=== PATIENT | male | born 1940 | race Hispanic/Latino ===

== ENCOUNTER 2017-01-22 07:28 | Emergency (ER) | payer MEDICARE ==
--- NOTE | 2017-01-22 07:42 | ED PDOC ---
Arrival/HPI - General Time Seen by Provider: 01/22/17 07:33 Historian: Patient - History of Present Illness Narrative History of Present Illness (Text): 01/22/17 07:37 A 76 year old male presents to the emergency department complaining of a laceration to his right hand. Patient reports while cutting a piece of wax paper he injured his palm on the blade of the box. Patient denies any other injuries, fever, chills or other complaints. Patient takes baby Aspirin daily. PMD: Dr. dr Cortney Fatima Time/Duration: Other (Last night) Symptom Course: Unchanged Quality: Other Context: Home Past Medical History - Provider Review Nursing Documentation Reviewed: Yes - Tetanus Immunization Tetanus Immunization: >10 years Ago Family/Social History - Physician Review Nursing Documentation Reviewed: Yes Family/Social History: No Known Family HX Allergies/Home Meds Allergies/Adverse Reactions: Allergies No Known Allergies Allergy (Verified 01/22/17 07:45) Home Medications: Home Meds Medication Instructions Recorded Confirmed Unobtainable 01/22/17 01/22/17 Review of Systems - Physician Review All systems were reviewed & negative as marked: Yes - Review of Systems Constitutional: absent: Fevers, Night Sweats Skin: Laceration (Right hand) Physical Exam Vital Signs Temp Pulse Resp BP Pulse Ox 01/22/17 07:37 98.7 F 70 16 142/71 99 Appearance: Positive for: Well-Appearing, Non-Toxic, Comfortable Pain Distress: None Mental Status: Positive for: Alert and Oriented X 3 - Systems Exam Head: Present: Atraumatic, Normocephalic Pupils: Present: PERRL Extroacular Muscles: Present: EOMI Conjunctiva: Present: Normal Mouth: Present: Moist Mucous Membranes Neurological: Present: GCS=15, CN II-XII Intact, Speech Normal Skin: Present: Warm, Dry, Normal Color, Laceration (2 cm laceration on right palm, good pulse and capillary refill). No: Rashes Psychiatric: Present: Alert, Oriented x 3, Normal Insight, Normal Concentration Medical Decision Making ED Course and Treatment: 01/22/17 07:37 Impression: A 76 year old male with a laceration to right palm. Differential Diagnosis included but are not limited to: Laceration Plan: -- Laceration repair -- Reassess and disposition Progress Notes: PROCEDURE: LACERATION REPAIR Performed by the emergency provider Location: Right palm Length: 2 cm Description: Clean wound edges, No foreign bodies Distal CMS: Normal. No deficits. Neurovascularly intact. Anesthesia: Lidocaine 2% without epi Preparation: The wound was cleaned with NS. The area was prepped and draped in the usual sterile fashion. Exploration: The wound was explored and no foreign bodies were found. Procedure: The wound was closed with 4-0 nylon. There was good approximation. In total, 5 sutures were used. Post-Procedure: Good closure and hemostasis. The patient tolerated the procedure well and there were no complications. CSM remains intact. Post procedure dressing applied. 01/22/17 08:04 Advised patient not to wet his wound for 48 hours and to follow up for suture removal in 7-10 days. Patient expresses understanding and is in agreement with plan. - Lab Interpretations Lab Results: Lab Results 01/22/17 07:36: POC Glucose (mg/dL) 141 H - Medication Orders Current Medication Orders: Discontinued Medications Bacitracin (Bacitracin) 1 ea TOP ONCE ONE Stop: 01/22/17 08:04 Tetanus/Reduced Diphtheria/Acell Pertussis (Boostrix Vaccine Inj) 0.5 ml IM .ONCE ONE Stop: 01/22/17 08:04 - Scribe Statement The provider has reviewed the documentation as recorded by the Scribadelina Adair Provider Scribe Attestation: All medical record entries made by the Scribe were at my direction and personally dictated by me. I have reviewed the chart and agree that the record accurately reflects my personal performance of the history, physical exam, medical decision making, and the department course for this patient. I have also personally directed, reviewed, and agree with the discharge instructions and disposition. Disposition/Present on Arrival - Present on Arrival Any Indicators Present on Arrival: No - Disposition Have Diagnosis and Disposition been Completed?: Yes Diagnosis: Hand laceration Disposition: HOME/ ROUTINE Disposition Time: 08:04 Patient Plan: Discharge Patient Problems: Current Active Problems Problem Status Onset Hand laceration Acute Condition: IMPROVED Discharge Instructions (ExitCare): Laceration (ED) Additional Instructions: Mr Redd, thank you for letting us take care of you today. Your provider was Dr. Bowen. You were treated for Hand Laceration. The emergency medical care you received today was directed at your acute symptoms. If you were prescribed any medication, please fill it and take as directed. It may take several days for your symptoms to resolve. Return to the Emergency Department if your symptoms worsen, do not improve, or if you have any other problems. Do not wet wound for 48 hours and you need suture removal in 7-10days. Please return to the ED if redness, pus, swollen occurs or any other concern. Please contact your doctor or call one of the physicians/clinics you have been referred to that are listed on the Patient Visit Information form that is included in your discharge packet. Bring any paperwork you were given at discharge with you along with any medications you are taking to your follow up visit. Our treatment cannot replace ongoing medical care by a primary care provider (PCP) outside of the emergency department. Thank you for allowing the [facility] team to be part of your care today. If you had an X-Ray or CT scan: A Radiologist will review the ED reading if any change in treatment is needed we will contact you. If you had a blood, urine, or wound culture: It will take several days for the results, if any change in treatment is needed we will contact you. If you had an STI test: It will take 48 hours for the results. Please call after 1 week if you have not heard back. Referrals: Cortney Fatima MD [Staff Provider] - Follow up with primary Forms: [employer] (Sudanese), WORK NOTE
[2017-01-22] MEDS ORDERED: TDAP Vaccine 0.5 mL Syr IM ONE (08:03)
[2017-01-22] MEDS ORDERED: Bacitracin 500 Units/gm Oint Foilpak UD TOP ONE (08:03)
[2017-01-22 08:30] VITALS: BP 134/71; PULSE 75; RESP 20; TEMP 98; O2SAT 100
== END 2017-01-22 08:31 | disposition home or self-care (01) ==
LOC: ED 07:28
DX: S61.411A Laceration without foreign body of right hand, initial encounter (principal); W45.8XXA Other foreign body or object entering through skin, initial encounter; Y92.009 Unspecified place in unspecified non-institutional (private) residence as the place of occurrence of the external cause; Z23 Encounter for immunization

== ENCOUNTER 2017-06-15 10:26 | Inpatient (IN) | payer MEDICARE ==
--- NOTE | 2017-06-15 11:25 | ED PDOC ---
Arrival/HPI - General Time Seen by Provider: 06/15/17 11:08 Historian: Patient - History of Present Illness Narrative History of Present Illness (Text): Patient is a 77 yo male with past medical history of diabetes, presents to the Emergency Department with fatigue, chills, cough for past 4 days. He reports feeling bloated. He reports cough and congestion. Denies chest pain or palpitations. Denies leg pain or swelling. States he has been feeling short of breath when he lays flat down. He also states that he has been feeling dizzy and lightheaded when he stands or walks. No headache. No sore throat. No rash. No neck pain. Reports no appetite. Denies abdominal pain. Denies dark or bloody stools. Time/Duration: 1 week Symptom Onset: Gradual Symptom Course: Unchanged Activities at Onset: Light Context: Home Past Medical History - Provider Review Nursing Documentation Reviewed: Yes - Infectious Disease Hx of Infectious Diseases: None - Tetanus Immunization Tetanus Immunization: >10 years Ago - Endocrine/Metabolic Hx Diabetes Mellitus Type 2: Yes - Psychiatric Hx Substance Use: No Family/Social History - Physician Review Nursing Documentation Reviewed: Yes Family/Social History: No Known Family HX Smoking Status: Unknown If Ever Smoked Hx Alcohol Use: No Hx Substance Use: No Allergies/Home Meds Allergies/Adverse Reactions: Allergies No Known Allergies Allergy (Verified 06/15/17 11:13) Home Medications: Home Meds Medication Instructions Recorded Confirmed Aspirin [Aspirin Chewable] 81 mg PO DAILY 06/15/17 06/15/17 Atenolol/Chlorthalidone 1 tab PO DAILY 06/15/17 06/15/17 [Atenolol/Chlorthalidone 100 mg-25 mg] Benazepril HCl [Lotensin] 40 mg PO BID 06/15/17 06/15/17 Fish Oil/Dha/Epa [Fish Oil 1,200 1 each PO DAILY 06/15/17 06/15/17 mg Fish Oil] Glipizide [Glucotrol] 10 mg PO BID 06/15/17 06/15/17 Insulin Detemir [Levemir] 20 unit SC DAILY 06/15/17 06/15/17 Insulin Detemir [Levemir] 60 unit SC DAILY 06/15/17 06/15/17 Metformin HCl [Glucophage] 1 tab PO BID 06/15/17 06/15/17 Multivitamin [One Daily 1 each PO DAILY 06/15/17 06/15/17 Multivitamin] Potassium Chloride [Klor-Con M20] 20 meq PO DAILY 06/15/17 06/15/17 Simvastatin [Zocor] 40 mg PO DAILY 06/15/17 06/15/17 Review of Systems - Review of Systems Constitutional: Fatigue, Fevers, Night Sweats Eyes: absent: Vision Changes ENT: Rhinorrhea. absent: Voice Changes Respiratory: SOB (upon lying down), Cough. absent: Sputum, Wheezing Cardiovascular: XAVIER. absent: Chest Pain, Palpitations, Edema, Calf Pain Gastrointestinal: Nausea, Appetite Changes. absent: Abdominal Pain, Constipation, Diarrhea, Vomiting, Hematochezia, Hematemesis Genitourinary Male: Urinary Output Changes. absent: Dysuria, Frequency Musculoskeletal: absent: Arthralgias, Neck Pain Skin: absent: Rash, Pruritis Neurological: absent: Headache, Dizziness Endocrine: absent: Diaphoresis Hemo/Lymphatic: absent: Adenopathy Psychiatric: absent: Anxiety, Depression Physical Exam - Physical Exam Narrative Physical Exam (Text): Head: Atraumatic. Normocephalic. Eyes: PERRL. EOMI. Conjunctivae are not pale. ENT: Mucous membranes are dry. Oropharynx is clear and symmetric. Neck: Supple. Full ROM. No JVD. No lymphadenopathy. No meningeal signs. Cardiovascular: Regular rate. Regular rhythm. No murmurs, rubs, or gallops. Distal pulses are 2+ and symmetric. Pulmonary/Chest: No evidence of respiratory distress. Clear to auscultation bilaterally. No wheezing, rales or rhonchi. Abdominal: Distended but soft and nontender. No pulsatile masses. Rectal: brown heme negative stool, no melena Back: No CVA tenderness. Extremities: No edema. No cyanosis. No clubbing. Full range of motion in all extremities. No calf tenderness. Skin: Skin is warm and dry. No petechiae. No purpura. No cellulitis. Neurological: Alert, awake, and oriented to person, place, time, and situation. Normal speech. No meningeal signs. motor and sensory exam intact. Psychiatric: Good eye contact. Normal interaction, affect, and behavior. Vital Signs Reviewed: Yes Vital Signs Temp Pulse Resp BP Pulse Ox 06/15/17 15:00 98.9 F 60 18 119/67 99 06/15/17 12:27 98.9 F 55 L 18 130/59 L 96 06/15/17 11:59 98.9 F 53 L 18 132/58 L 96 Temperature: Afebrile Appearance: Positive for: Ill-Appearing Pain Distress: Mild Mental Status: Positive for: Alert and Oriented X 3 Medical Decision Making ED Course and Treatment: 06/15/17 11:27 Impression: 77 year old male complaining shortness of breath upon laying down and cannot tolerate food with associated coughs, clogged ears, bloating, and chills for six days. Differential Diagnosis included but are not limited to: CHF vs. Influenza vs. Pneumonia vs. Acute Coronary Syndrome vs. Sepsis, pericarditis, pericardial effusion Plan: -- EKG -- Chest X-ray -- Abdomen and Pelvis w/o contrast -- VBG and Blood Culture -- Urine Culture -- Labs -- Reassess and disposition Prior Visits: Notes and results from previous visits were reviewed. Patient was last seen in the emergency department on 01/22/17 for laceration to right hand. Patient was discharged home. Progress Notes: Patient's history and exam also reviewed with PMD prior to arrival. He denies chest pain or abdominal pain. No respiratory distress noted. Currently afebrile , although reports cough with sick exposures. States he has no appetited and does not tolerate oral intake, although on exam his abdomen is soft and nontender. Given persistent symptoms, ct ordered of abdomen, no obstruction noted. IV fluids ordered. K replaced. No recent prior EKG for comparison, patient noted to have abnormal EKG with Bifascicular block. On monitor he is noted to be intermittently bradycardic, although BP has been stable and no associated chest pain. Cannot exclude associated cardiac component, heart block although there appears to be consistent p waves associated at this time. Findings reviewed with patient and PMD, as influenza is positive. Precautions ordered, and tamiflu. Will admit to telemetry bed given heart rhythm and reported episodes of dizziness. 06/15/17 15:32 - Lab Interpretations Lab Results: 06/15/17 12:25 06/15/17 12:25 Lab Results 06/15/17 12:25: pO2 26 L, VBG pH 7.43, VBG pCO2 49.0, VBG HCO3 32.5 H, VBG Total CO2 34.0 H, VBG O2 Sat (Calc) 53.0, VBG Base Excess 6.9 H, VBG Potassium 3.0 L, Sodium 135.0, Chloride 98.0, Glucose 151 H, Lactate 1.1, FiO2 21.0, Venous Blood Potassium 3.0 L 06/15/17 12:25: Influenza Typ A,B (EIA) Pos for influenza a H 06/15/17 12:25: Sodium 136, Chloride 95 L, Potassium 3.1 L, Carbon Dioxide 31, Anion Gap 13, BUN 25 H, Creatinine 0.8, Est GFR ( Amer) > 60, Est GFR ( Non-Af Amer) > 60, Random Glucose 151 H, Calcium 9.1, Magnesium 2.0, Total Bilirubin 1.2, AST 40, ALT 27, Alkaline Phosphatase 82, Lactate Dehydrogenase 444, Total Creatine Kinase 74, Troponin I 0.03, NT-Pro-B Natriuret Pep 302, Total Protein 7.5, Albumin 4.0, Globulin 3.5, Albumin/Globulin Ratio 1.1 06/15/17 12:25: PT 16.6 H, INR 1.43 H, APTT 37.3 H 06/15/17 12:25: WBC 8.0 D, RBC 3.92, Hgb 11.7 L, Hct 35.1 L, MCV 89.5, MCH 29.8 , MCHC 33.3, RDW 13.6, Plt Count 147, MPV 9.7, Gran % 70.1 H, Lymph % (Auto) 18.1 L, Mccracken % (Auto) 11.4 H, Eos % (Auto) 0.3 L, Baso % (Auto) 0.1, Gran # 5.57 , Lymph # 1.4, Mccracken # 0.9 H, Eos # 0.0, Baso # 0.01 - RAD Interpretation Radiology Orders: 06/15/17 11:15 ABD & PELVIS W/O PO OR IV CONT [CT] Stat 06/15/17 11:16 CHEST PORTABLE [RAD] Stat Popped Corn Oven Attendant: Radiologist - EKG Interpretation EKG Interpretation (Text): EKG at 11:14 sinus rhythm rate of 65 with right bundle branch block, left anterior fascicular block, Interpreted by ED Physician: Yes Type: 12 lead EKG - Medication Orders Current Medication Orders: Discontinued Medications Potassium Chloride (Potassium Chloride 10 Meq/100 Ml) 10 meq in 100 mls @ 50 mls/hr IVPB ONCE ONE Stop: 06/15/17 15:02 Last Admin: 06/15/17 14:14 Dose: 50 mls/hr eMAR Start Stop Document 06/15/17 14:14 OCS (Rec: 06/15/17 14:14 OCS [id number]) Intravenous Solution Start Date 06/15/17 Start Time 14:14 End Date 06/15/17 End time 16:14 Total Infusion Time 120 Sodium Chloride (Sodium Chloride 0.9%) 1,000 mls @ 1,000 mls/hr IV .Q1H STA Stop: 06/15/17 14:21 Last Admin: 06/15/17 14:02 Dose: 1,000 mls/hr eMAR Start Stop Document 06/15/17 14:02 OCS (Rec: 06/15/17 14:02 OCS [id number]) Intravenous Solution Start Date 06/15/17 Start Time 14:02 End Date 06/15/17 End time 15:02 Total Infusion Time 60 Oseltamivir Phosphate (Tamiflu Cap) 75 mg PO STAT STA PRN Reason: Protocol Stop: 06/15/17 13:20 Last Admin: 06/15/17 14:02 Dose: 75 mg Potassium Chloride (K-Dur 20 Meq Er Tab) 40 meq PO STAT STA Stop: 06/15/17 13:05 Last Admin: 06/15/17 14:03 Dose: 40 meq - Scribe Statement The provider has reviewed the documentation as recorded by the Shima Hoover Provider Scribe Attestation: All medical record entries made by the Shima were at my direction and personally dictated by me. I have reviewed the chart and agree that the record accurately reflects my personal performance of the history, physical exam, medical decision making, and the department course for this patient. I have also personally directed, reviewed, and agree with the discharge instructions and disposition. Disposition/Present on Arrival - Present on Arrival Any Indicators Present on Arrival: No History of DVT/PE: No History of Uncontrolled Diabetes: No Urinary Catheter: No History Surgical Site Infection Following: None - Disposition Have Diagnosis and Disposition been Completed?: Yes Diagnosis: Influenza, Loss of appetite, Arrhythmia, Bradycardia, Bundle branch block, Hypokalemia Disposition: HOSPITALIZED Disposition Time: 14:00 Patient Plan: Admission, Telemetry Patient Problems: Current Active Problems Problem Status Onset Arrhythmia Acute Bradycardia Acute Bundle branch block Acute Hypokalemia Acute Influenza Acute Loss of appetite Acute Condition: SERIOUS
--- NOTE | 2017-06-15 12:36 | RAD ---
HISTORY: sob COMPARISON: No prior. FINDINGS: LUNGS: No active pulmonary disease. PLEURA: No significant pleural effusion identified, no pneumothorax apparent. CARDIOVASCULAR: Normal. OSSEOUS STRUCTURES: No significant abnormalities. VISUALIZED UPPER ABDOMEN: Normal. OTHER FINDINGS: None. IMPRESSION: No active disease.
[2017-06-15 12:42] LABS: VENOUS BLOOD GAS BASE EXCESS 6.9 mmol/L (0.0-2.0); VENOUS BLOOD GAS PO2 26 mm/Hg (30-55); VENOUS BLOOD PH 7.43 (7.32-7.43)
[2017-06-15 12:46] LABS: BASO # 0.01 K/mm3 (0.0-2.0); BASO % 0.1 % (0.0-3.0); EOS % 0.3 % (1.5-5.0); GRAN # 5.57 (1.4-6.5); GRAN % 70.1 % (50.0-68.0); HEMOGLOBIN 11.7 g/dL (14.0-18.0); LYMPH # 1.4 (1.2-3.4); LYMPH % 18.1 % (22.0-35.0); MEAN CELL VOLUME 89.5 fl (80.0-105.0); MEAN CORPUSCULAR HEMOGLOBIN 29.8 pg (25.0-35.0); MEAN CORPUSCULAR HGB CONC 33.3 g/dl (31.0-37.0); MEAN PLATELET VOLUME 9.7 fl (7.0-11.0); MONO # 0.9 (0.1-0.6); MONO % 11.4 % (1.0-6.0); RBC 3.92 10^6/uL (3.5-6.1); RED CELL DISTRIBUTION WIDTH 13.6 % (11.5-14.5)
[2017-06-15 12:51] LABS: ALB/GLOB RATIO 1.1 (1.1-1.8); ALT/SGPT 27 U/L (7-56); AST/SGOT 40 U/L (17-59); BLOOD UREA NITROGEN 25 mg/dL (7-21); CALCIUM 9.1 mg/dL (8.4-10.5); GFR AFRICAN-AMERICAN > 60; GFR NON-AFRICAN AMERICAN > 60
[2017-06-15 13:03] LABS: B-TYPE NATRIURETIC PEPTIDE 302 pg/mL (0-450); TROPONIN I 0.03 ng/mL
[2017-06-15] MEDS ORDERED: Potassium Chloride 20 mEq ER Tab PO STA (13:04)
[2017-06-15 13:05] LABS: PROTHROMBIN TIME 16.6 SECONDS (9.4-12.5)
[2017-06-15 13:06] LABS: INR 1.43 (0.93-1.08); PARTIAL THROMBOPLASTIN TIME 37.3 Seconds (25.1-36.5)
[2017-06-15] MEDS ORDERED: Sodium Chloride 0.9% 1,000 ML IV STA (13:22)
--- NOTE | 2017-06-15 13:22 | CT ---
PROCEDURE: CT Abdomen and Pelvis without intravenous contrast HISTORY: abdominal distension, vomiting COMPARISON: None. TECHNIQUE: Without contrast.. Contrast Dose: Radiation dose: Total exam DLP = 1462 mGy-cm. This CT exam was performed using one or more of the following dose reduction techniques: Automated exposure control, adjustment of the mA and/or kV according to patient size, and/or use of iterative reconstruction technique. FINDINGS: LOWER THORAX: Unremarkable. LIVER: Unremarkable. No gross lesion or ductal dilatation. GALLBLADDER AND BILE DUCTS: Unremarkable. PANCREAS: Unremarkable. No gross lesion or ductal dilatation. SPLEEN: Unremarkable. ADRENALS: Unremarkable. No mass. KIDNEYS AND URETERS: Unremarkable. No hydronephrosis. No solid mass. VASCULATURE: Unremarkable. No aortic aneurysm. BOWEL: Unremarkable. No obstruction. No gross mural thickening. Mild diverticulosis of the sigmoid colon and descending colon. No evidence of diverticulitis APPENDIX: Unremarkable. Normal appendix. PERITONEUM: Unremarkable. No free fluid. No free air. LYMPH NODES: Unremarkable. No enlarged lymph nodes. BLADDER: Unremarkable. REPRODUCTIVE: Unremarkable. BONES: No acute fracture. Disc degeneration L4-5 OTHER FINDINGS: None. IMPRESSION: No acute findings
[2017-06-15] MEDS ORDERED: Oxymetazoline 0.05% Nasal Spray (30 ml) NS PRN (18:19)
[2017-06-15] MEDS: Promethazine DM 6.25 mg-15 mg/5 ml Syrup PO PRN (18:23)
[2017-06-15] MEDS: Albuterol 0.083% Inhal Sol (2.5 mg/3 mL) UD INH SCH (20:10)
[2017-06-15] MEDS: Insulin Detemir 100 units/ml Vial (Levemir) SC SCH (21:50)
[2017-06-15 22:47] VITALS: BMI 33.7
[2017-06-15] MEDS ORDERED: Influenza Vaccine 60 mcg/0.5 mL SYR (4YR UP) IM ONE (22:47)
[2017-06-15] MEDS ORDERED: Pneumococcal 23-Valent Vaccine IM ONE (22:47)
[2017-06-16] MEDS: Albuterol 0.083% Inhal Sol (2.5 mg/3 mL) UD INH SCH ×4 (03:05→21:30)
--- NOTE | 2017-06-16 05:15 | HP ---
CHIEF COMPLAINT: Fever, cough, and weakness for 4 days. HISTORY OF PRESENT ILLNESS: The patient is a 77-year-old male with history of type 2 diabetes mellitus, hypertension, and hyperlipidemia who was sent from primary care doctor office to Emergency Room for evaluation due to fever, chest congestion, cough, and severe fatigue. The patient claims that he has fever and cough for 4 days. He has loss of appetite, feels bloated, and constipated. The patient states that he lost 3 to 4 pounds over the past few days. He denies any chest pain, heart palpitations, headache, or leg pains. PAST MEDICAL HISTORY: History of type 2 diabetes mellitus for the past 20 years, hypertension, hyperlipidemia, osteoarthritis of both knees, and chronic skin actinic keratosis. PRESENT MEDICATIONS: Include Levemir insulin, which he takes twice a day, glipizide twice a day, simvastatin one a day, metformin twice a day, atenolol, chlorthalidone one tablet daily, and benazepril 1 tablet daily. ALLERGIES: THE PATIENT DENIES ANY KNOWN ALLERGIES. FAMILY HISTORY: Noncontributory. SOCIAL HISTORY: The patient denies any smoking. He drinks alcohol occasionally. He denies any drug use. The patient is retired. He lives alone. He is independent of activity of daily living. REVIEW OF SYSTEMS: Complains of fatigue, loss of appetite, and fever for the past 4 days. He denies any sore throat. He complains of severe nasal congestion and ear pressure. He denies any dysphagia. Complains of chest congestion and dry cough. He denies any shortness of breath. He denies any chest pain or heart palpitations, but complains of dizziness. He denies any abdominal pain, but complains of feeling of bloating. He complains of constipation for the last 3 days. He denies any nausea, vomiting, or diarrhea. The patient denies any dysuria, hematuria, or flank pain. He denies any blurred vision. Complains of dizziness. Denies headache or neurological weakness. PHYSICAL EXAMINATION: VITAL SIGNS: His temperature on admission was 98.9, the patient's pulse was 70 and regular, blood pressure 130/59, and respiratory rate 18. His oxygen saturation was 96% on room air. GENERAL: The patient looked pale in no acute distress, but ill looking. HEENT: Head is normocephalic and atraumatic. Eyes with pupils reactive to light. No jaundice. Severe nasal congestion. Oral mucosa is moist. No throat lesions. No erythema. NECK: Supple. No JVD. No neck masses. LUNGS: With scattered rhonchi in the right lower lung. No wheezing. HEART: With regular rhythm, rate of 65 per minute. ABDOMEN: Slightly distended, nontender. No masses palpable. Bowel sounds are positive. EXTREMITIES: Showed no edema or cyanosis. No calf tenderness. DIAGNOSTIC TESTS: CBC with WBC 8 and hemoglobin 11.7. Chemistry pertinent finding, sodium 136, potassium low at 3.1, chloride is low at 95, BUN 25, and creatinine 0.8. His random glucose was 151. His troponin level was 0.03. BNP is normal. His serology was positive for influenza. Chest x-ray showed no acute infiltrations. EKG showed sinus rhythm with frequent premature atrial complexes. There is diffuse right bundle-branch block and left anterior fascicular block. There are nonspecific ST changes. ASSESSMENT: 1. A 77-year-old male with history of fever, chest congestion, and cough with positive influenza serology admitted for influenza. 2. Dehydration. 3. Hypokalemia. 4. Sinus bradycardia with abnormal EKG. 5. Type 2 diabetes mellitus. PLAN OF TREATMENT: The patient was admitted to telemetry. Septic workup was done. He was started on Tamiflu, albuterol through nebulizer was ordered as well as cough medication for relief of severe cough. Cardiology consult was called for evaluation of persistent bradycardia. The patient was started on his chronic medication of Levemir with fingerstick and glipizide. The patient was maintained on his CHRISSY inhibitor. We will repeat the chest x-ray in a.m. Cortney Fatima MD
[2017-06-16 07:15] LABS: HEMOGLOBIN 11.7 g/dL (14.0-18.0); MEAN CELL VOLUME 88.9 fl (80.0-105.0); MEAN CORPUSCULAR HEMOGLOBIN 29.6 pg (25.0-35.0); MEAN CORPUSCULAR HGB CONC 33.3 g/dl (31.0-37.0); MEAN PLATELET VOLUME 9.5 fl (7.0-11.0); RBC 3.95 10^6/uL (3.5-6.1); RED CELL DISTRIBUTION WIDTH 13.4 % (11.5-14.5); WHITE BLOOD COUNT 9.3 10^3/ul (4.5-11.0)
[2017-06-16 07:31] LABS: ALBUMIN 3.8 g/dL (3.0-4.8); ALT/SGPT 39 U/L (7-56); AST/SGOT 60 U/L (17-59); BLOOD UREA NITROGEN 18 mg/dL (7-21); GFR AFRICAN-AMERICAN > 60; GFR NON-AFRICAN AMERICAN > 60
[2017-06-16] MEDS ORDERED: Potassium Chloride 20 mEq ER Tab PO SCH (08:00)
[2017-06-16] MEDS ORDERED: Potassium Chloride 20 mEq ER Tab PO ONE ×3 (08:43→13:00)
[2017-06-16] MEDS ORDERED: Potassium Chloride 10 mEq ER Tab PO SCH (10:00)
[2017-06-16] MEDS: cefTRIAXone 1 gm 1 GM/100 ML BAG IVPB SCH (11:05)
--- NOTE | 2017-06-16 11:24 | RAD ---
HISTORY: influenza, r/o right pneumonia COMPARISON: 06/15/2017 TECHNIQUE: Chest PA and lateral FINDINGS: LUNGS: Right-sided vascular congestion. No evidence of pneumonia PLEURA: No significant pleural effusion identified. No pneumothorax apparent. CARDIOVASCULAR: Normal. OSSEOUS STRUCTURES: No significant abnormalities. VISUALIZED UPPER ABDOMEN: Normal. OTHER FINDINGS: None. IMPRESSION: Right-sided vascular and perihilar congestion
--- NOTE | 2017-06-16 17:48 | CARD ---
APPROVED REPORT EKG Measurement Heart [id number] <Conclusion> Marked sinus bradycardia Right bundle branch block Left anterior fascicular block Bifascicular block Left ventricular hypertrophy with repolarization abnormality Abnormal ECG
--- NOTE | 2017-06-16 18:10 | CARD ---
APPROVED REPORT EKG Measurement Heart [id number] <Conclusion> Sinus rhythm with premature atrial complexes Right bundle branch block Left anterior fascicular block Bifascicular block Left ventricular hypertrophy with repolarization abnormality Cannot rule out Septal infarct, age undetermined Abnormal ECG
--- NOTE | 2017-06-16 18:40 | CARD ---
APPROVED REPORT EXAM: Two-dimensional and M-mode echocardiogram with Doppler and color Doppler. INDICATION Chest Pain 2D DIMENSIONS Left Atrium (2D)3.3 (1.6-4.0cm)IVSd1.1 (0.7-1.1cm) Aortic Root (2D)3.6 (2.0-3.7cm)LVDd5.4 (3.9-5.9cm) LVOT Diameter2.3 (1.8-2.4cm)PWd1.2 (0.7-1.1cm) LVDs2.5 (2.5-4.0cm)FS (%) 53.8 % LVEF (%)84.3 (>50%) M-Mode DIMENSIONS Aortic Cusp Exc.1.00 (1.5-2.0cm) Aortic Valve AoV Peak Qbjhuzvs769.0cm/sAoV VTI74.5cmAO Peak GR.47mmHg LVOT Peak Hqufddky642.0cm/sLVOT VTI27.10cmAO Mean GR.25mmHg ANDRA (VMAX)1.03qw1HJV (VTI)1.51cm2 Mitral Valve MV E Ctuoclhh75.3cm/sMV A Qkoorade231.0cm/sE/A ratio0.7 TDI Lateral E' Peak V11.20cm/sMedial E' Peak V6.14cm/sE/Lateral E'7.4 E/Medial E'13.6 Pulmonary Valve PV Peak Vqgkgfux775.0cm/sPV Peak Grad.5mmHg Tricuspid Valve TR Peak Rhadzmcd226vp/sRAP NBIFXUVB3ldAwPR Peak Gr.33mmHg [id number] LEFT VENTRICLE The left ventricle is normal size. There is borderline concentric left ventricular hypertrophy. The left ventricular function is normal.Ef-65% There is normal LV segmental wall motion. Transmitral Doppler flow pattern is Grade IV-fixed restrictive diastolic dysfunction. No left ventricle thrombus noted on this study. There is no ventricular septal defect visualized. There is no left ventricular aneurysm. There is no mass noted in the left ventricle. RIGHT VENTRICLE The right ventricle is normal size. There is normal right ventricular wall thickness. The right ventricular systolic function is normal. ATRIA The left atrium size is normal. The right atrium size is normal. The interatrial septum is intact with no evidence for an atrial septal defect. AORTIC VALVE The aortic valve is calcified and displays decreased opening. There is trace aortic regurgitation. There is moderate valvular aortic stenosis. There is no aortic valvular vegetation. MITRAL VALVE The mitral valve is thickened but opens well. Mitral annular calcification is mild to moderate. Mitral regurgitation is trace. There is no mitral valve stenosis. There is no evidence of mitral valve prolapse. TRICUSPID VALVE The tricuspid valve leaflets are thickened , but open well. There is trace to mild tricuspid regurgitation.RVSP-36 mmof hg. There is no tricuspid valve stenosis. There is no tricuspid valve prolapse or vegetation. PULMONIC VALVE The pulmonic valve is not well visualized. GREAT VESSELS The aortic root is normal in size. The ascending aorta is normal in size. The pulmonary artery is normal. The IVC is normal in size and collapses >50% with inspiration. PERICARDIAL EFFUSION There is no pleural effusion. There is no pericardial effusion. <Conclusion> Normal saud,mber size.EF-65% There is trace aortic regurgitation. There is moderate valvular aortic stenosis. Mitral regurgitation is trace. There is trace to mild tricuspid regurgitation.RVSP-36 mmof hg. The IVC is normal in size and collapses >50% with inspiration. There is no pericardial effusion.
--- NOTE | 2017-06-16 19:16 | CON ---
CONSULT SERVICE: Cardiology. REASON FOR CONSULTATION AND FOLLOWUP: Admitted with flu, but having bradycardia and PVCs. Cardiac evaluation. BRIEF CLINICAL HISTORY: This is a 77-year-old male with past medical history significant for type 2 diabetes more than 10 years, hypertension, hyperlipidemia, had problem with weak heart and arrhythmias since the age of 14, and was told not to take part in competitive sport or a strenuous activity, but the patient all through life very active, he swims, he jogs, and no problem until he got to age 77. Denies any chest pain, denies any shortness of breath, denies any palpitations. Cardiology consult was called because of the bradycardia. When he sleeps, the heart rate goes to 40 with PVCs, but according to the patient, there has been nothing new and it has always been like this since the age of 14. PAST HISTORY: Significant diabetes, hypertension, hyperlipidemia, history of heart problem, arrhythmia, and bradycardia since start at the age of 14. Initially being followed by the parents goes to the parents to the pediatric clinical dietician, but later as he grew up, he stopped going to the doctor, especially commodities requirements analyst. He was very active and he swims and jogs, but no complaints. He had participated in all sports activity as well. SOCIAL HISTORY: Denies smoking. Denies any history of alcohol abuse. MEDICATIONS: Current medications before he came in, the patient was taking insulin, benazepril , aspirin, multivitamin, glipizide, metformin, simvastatin, and atenolol/chlorthalidone. REVIEW OF SYSTEM: As per HPI. PHYSICAL EXAMINATION: As follows; VITAL SIGNS: Height of the patient 5 feet 10 inches, weight of the patient 235 pounds, body mass index 33.7 kg/m2, heart rate 70, blood pressure 102/49. HEENT: PERRLA. Extraocular muscles intact. NECK: Supple. No carotid bruits or thyromegaly. CHEST: Clear to auscultation. HEART: S1 and S2 regular. ABDOMEN: Soft. EXTREMITIES: Clubbing and cyanosis negative. LABORATORY DATA: Blood workup: WBC 9.2, hemoglobin 11.7, hematocrit 35.1, and platelet count 152. Chemistry showed sodium 137, potassium 3.2, chloride 97, carbon dioxide 28, anion gap of 14, BUN 18, creatinine 0.7, troponin initial 0.03, glucose 99, AST 60. EKG shows normal sinus, right bundle, left anterior hemiblock, PVCs. IMPRESSION: The patient, according to him, has a history of bradycardia and arrhythmia and weakened heart muscles, not sure it was a low heart rate or real weakness of the heart muscles, diagnosed at the age of 14, used to go to see pediatric clinical dietician with the parents, later on as he grew up, he stopped going and has no cardiac complaints as such. Though he was advised not to take any competitive sports, but the patient jogs, swims, and got to the age of 77, no events. No history of dizziness or chest pain or shortness of breath. RECOMMENDATION: We will get echo. Baseline, the patient has EKG, normal sinus with PVCs, was on atenolol possibly that could be the reason the patient was bradycardic, but we will get echo to rule out any structural heart disease. The patient has a flu now, so we will do a stress test as an outpatient. Explained to the patient that for risk stratification, we will do a stress test as outpatient with multiple risk factors including diabetes, hypertension, obesity. Interim, we will get the lipid profile, TSH, hemoglobin A1C. We will follow with you and avoid beta jossue. We will supplement potassium. Thank you for providing us the opportunity in taking care of Moses Redd. Rima Ramsey MD
[2017-06-16] MEDS: Budesonide 0.5 mg/2 ml Inhal Susp UD IH SCH (21:30)
[2017-06-16] MEDS: Insulin Detemir 100 units/ml Vial (Levemir) SC SCH (21:39)
[2017-06-16] MEDS: Promethazine DM 6.25 mg-15 mg/5 ml Syrup PO PRN (23:20)
[2017-06-17] MEDS: Albuterol 0.083% Inhal Sol (2.5 mg/3 mL) UD INH SCH ×4 (02:30→21:50)
[2017-06-17 07:14] LABS: HEMOGLOBIN 11.4 g/dL (14.0-18.0); MEAN CELL VOLUME 89.1 fl (80.0-105.0); MEAN CORPUSCULAR HEMOGLOBIN 29.7 pg (25.0-35.0); MEAN CORPUSCULAR HGB CONC 33.3 g/dl (31.0-37.0); MEAN PLATELET VOLUME 9.5 fl (7.0-11.0); RBC 3.84 10^6/uL (3.5-6.1); RED CELL DISTRIBUTION WIDTH 13.6 % (11.5-14.5)
[2017-06-17 07:19] LABS: ALBUMIN 3.8 g/dL (3.0-4.8); ALT/SGPT 54 U/L (7-56); AST/SGOT 87 U/L (17-59); BLOOD UREA NITROGEN 12 mg/dL (7-21); GFR AFRICAN-AMERICAN > 60; GFR NON-AFRICAN AMERICAN > 60; HDL CHOLESTEROL 28 mg/dL (29-60); MAGNESIUM 2.1 mg/dL (1.7-2.2)
[2017-06-17 07:27] LABS: LDL CHOLESTEROL 93 mg/dL (0-129)
[2017-06-17] MEDS: Budesonide 0.5 mg/2 ml Inhal Susp UD IH SCH ×2 (07:30→21:50)
--- NOTE | 2017-06-17 08:40 | PN ---
DATE: 06/16/2017 SUBJECTIVE: The patient was admitted for influenza with bronchitis. He developed significant sinus bradycardia, needing evaluation in the emergency room and was admitted to Telemetry. He is feeling better. The patient is afebrile since his admission. He continues with severe chest congestion and cough. He denies any chest pain or shortness of breath. His appetite improved. The patient continues with significant sinus bradycardia down to 40 at night seen on telemetry. PHYSICAL EXAMINATION: VITAL SIGNS: Stable. His temperature was 98.5 this morning, pulse 60, respiratory rate 16, and blood pressure 95/44. GENERAL: He is comfortable, sitting on the chair, alert, awake and oriented. HEENT: Head is normocephalic and atraumatic. Oral mucosa is moist. NECK: Supple. LUNGS: With bilateral bronchi and expiratory wheezing, no rales. HEART: Regular rhythm, bradycardia 60 per minute. ABDOMEN: Soft, nontender, and nondistended. EXTREMITIES: With no edema. DIAGNOSTIC STUDIES: CBC: WBC 9.3, hemoglobin 11.7, stable. His chemistry improved with potassium increased to 3.3, chloride 97. Renal function improved with BUN 18 and creatinine 0.7. The patient's glucose is stable and fluctuating between 120 and 180. Repeated electrocardiogram showed marked sinus bradycardia, heart rate 40, right bundle-branch block, left anterior fascicular block, left ventricular hypertrophy. Repeated chest x-ray showed small right side vascular congestion, but no infiltration. ASSESSMENT: 1. Influenza with underlying acute bronchitis. 2. Severe bradycardia, the patient asymptomatic. 3. Type 2 diabetes mellitus. 4. Hypokalemia. 5. Hyperlipidemia. PLAN OF TREATMENT: The patient will remain in telemetry for close monitoring of cardiac rhythm, evaluation per supervisor lamp shades pending followup of echocardiogram. The patient will be maintained on Tamiflu and Rocephin for now. Out of bed. We will replace potassium. Cortney Fatima MD
[2017-06-17] MEDS: Potassium Chloride 20 mEq ER Tab PO SCH ×2 (11:00→18:01)
[2017-06-17] MEDS: Fluticasone Nasal 50 mcg/Spray NS SCH (11:22)
[2017-06-17] MEDS: cefTRIAXone 1 gm 1 GM/100 ML BAG IVPB SCH (13:03)
--- NOTE | 2017-06-17 14:08 | PN ---
DATE: 06/17/2017 REASON FOR CONSULTATION AND FOLLOWUP: Admitted with flu, but having bradycardia on previous cardiac evaluation. SUBJECTIVE: The patient denies any chest pain, shortness of breath or any palpitations. OBJECTIVE:/PHYSICAL EXAMINATION: As follows: GENERAL: Not in apparent distress. VITAL SIGNS: Temperature is afebrile, heart rate is 70, and blood pressure is 115/68. HEENT: PERRLA. Extraocular muscles are intact. NECK: Supple. No carotid bruits or thyromegaly. CHEST: Clear to auscultation. HEART: S1 and S2, regular. ABDOMEN: Soft. EXTREMITIES: Clubbing and cyanosis negative. LABORATORY DATA: Blood workup as follows: WBC of 10, hemoglobin of 11, hematocrit of 34.2, and platelet count of 165. Chemistry shows sodium of 139, potassium of 3.0, chloride of 99, carbon dioxide of 27, anion gap of 16, BUN of 12, and creatinine of 0.6. DIAGNOSTIC DATA: The patient had echocardiography done yesterday that showed ejection fraction of 65%, moderate valvular aortic stenosis, trace mitral regurgitation, trace mild tricuspid regurgitation, right ventricular systolic pressure of 67. No pericardial effusion. IMPRESSION AND RECOMMENDATIONS: A 77-year-old male admitted with flu with long-standing history of aortic stenosis, premature ventricular contractions since the childhood. Echocardiography done yesterday showed preserved left ventricle function, no new cardiac complaints risk stratification suggested to have stress done as an outpatient, I explained to the patient and since the patient has flu, we will have quite at least 4 weeks' the patient can get better and walk on the treadmill. We discussed with Dr. Wadsworth and the patient has been scheduled for a stress test in 4 weeks' as outpatient. In the interim, continue to treat aggressively with and lisinopril. The patient has a history of bradycardia, not on beta-jossue, we will avoid beta-jossue for now. The patient states he is very active and used to jog since no cardiac complaint or symptoms. We will follow upon discharge and to schedule a stress test in 4 weeks. Arrangements have been made to do a stress test as outpatient. So, once the patient is stable from the point of flu, the patient can be discharged home. Rima Ramsey MD [facility] # [id number]
[2017-06-17] MEDS: Insulin Detemir 100 units/ml Vial (Levemir) SC SCH (21:49)
--- NOTE | 2017-06-18 02:31 | PN ---
DATE: SUBJECTIVE: The patient is doing much better. The patient is afebrile. His appetite improved. He continues with some chest congestion and cough. His cardiac status improved. His bradycardia resolved. PHYSICAL EXAMINATION: VITAL SIGNS: His vitals this morning are stable . Temperature 98.9, blood pressure 115/48, pulse 81, respiratory rate 18, his oxygen saturation was 95%. GENERAL: The patient is sitting on the chair, alert, awake and oriented. HEENT: Head is normocephalic and atraumatic. Oral mucosa is moist. NECK: Supple. LUNGS: With expiratory wheezing and some rhonchi HEART: With regular rhythm and rate. ABDOMEN: Soft, nontender, nondistended. EXTREMITIES: With no edema. DIAGNOSTIC TESTS: Normal CBC. Persistent hypokalemia with potassium 3.2 this morning. Renal function normal. His glucose is stable. His urine and blood cultures are negative. ASSESSMENT: 1. Influenza with acute bronchitis. 2. History of bradycardia, resolved. 3. Type 2 diabetes mellitus. 4. Hypokalemia. PLAN OF TREATMENT: We will continue Tamiflu, we will continue albuterol with budesonide for his bronchitis. We will monitor cardiac status. As per Cardiology, he will need evaluation outpatient for stress test after influenza resolved. The patient encouraged to be out of bed, start physical therapy evaluation. Also, we will order case maker's help for discharge planning . Cortney Fatima MD
[2017-06-18] MEDS: Albuterol 0.083% Inhal Sol (2.5 mg/3 mL) UD INH SCH ×4 (03:20→19:28)
[2017-06-18 07:32] LABS: HEMOGLOBIN 11.4 g/dL (14.0-18.0); MEAN CELL VOLUME 88.7 fl (80.0-105.0); MEAN CORPUSCULAR HEMOGLOBIN 29.2 pg (25.0-35.0); MEAN CORPUSCULAR HGB CONC 32.9 g/dl (31.0-37.0); MEAN PLATELET VOLUME 9.4 fl (7.0-11.0); RBC 3.91 10^6/uL (3.5-6.1); RED CELL DISTRIBUTION WIDTH 13.6 % (11.5-14.5); WHITE BLOOD COUNT 8.4 10^3/ul (4.5-11.0)
[2017-06-18 07:40] LABS: ALBUMIN 3.7 g/dL (3.0-4.8); ALT/SGPT 72 U/L (7-56); AST/SGOT 98 U/L (17-59); BLOOD UREA NITROGEN 10 mg/dL (7-21); CALCIUM 9.3 mg/dL (8.4-10.5); GFR AFRICAN-AMERICAN > 60; GFR NON-AFRICAN AMERICAN > 60
[2017-06-18] MEDS: Budesonide 0.5 mg/2 ml Inhal Susp UD IH SCH ×2 (08:08→19:28)
[2017-06-18] MEDS: Potassium Chloride 20 mEq ER Tab PO SCH ×2 (09:52→17:34)
[2017-06-18] MEDS: cefTRIAXone 1 gm 1 GM/100 ML BAG IVPB SCH (09:53)
[2017-06-18] MEDS: Promethazine DM 6.25 mg-15 mg/5 ml Syrup PO PRN ×2 (09:56→15:40)
[2017-06-18] MEDS: Fluticasone Nasal 50 mcg/Spray NS SCH (11:00)
[2017-06-18 13:12] VITALS: RESP 20
--- NOTE | 2017-06-18 14:10 | US ---
PROCEDURE: Soft tissue ultrasound of the neck HISTORY: right submandibular mass COMPARISON: TECHNIQUE: Nonvascular imaging of the submandibular region was performed FINDINGS: Two separate lymph nodes are seen in the right submandibular area the 1st measuring 8 x 4 x 9 mm and the 2nd 7 x 5 x 6 mm. IMPRESSION: Small right submandibular lymph nodes
[2017-06-18] MEDS ORDERED: Potassium Chloride 10 mEq ER Tab PO ONE (15:26)
--- NOTE | 2017-06-18 20:55 | PN ---
DATE: 06/18/2017 LOCATION: The patient is in room 277, bed 1. REASON FOR CONSULTATION: Evaluation of bradycardia, the patient admitted with flu. SUBJECTIVE: The patient is sitting in chair without any cardiac symptoms, chest pain, shortness of breath, or palpitations. OBJECTIVE: On examination, VITAL SIGNS: Blood pressure 115/64, respirations 20, pulse 72, temperature 97.5. HEENT: Head is normocephalic. Eyes: Pupils are normal. Conjunctivae are normal. NECK: JVP low. Carotids are equal. THORAX: AP diameter normal. LUNGS: Clear. CARDIOVASCULAR: S1 and S2. ABDOMEN: Soft, nontender. No organomegaly. Bowel sounds are normal. EXTREMITIES: No clubbing. No cyanosis. LABORATORY DATA: WBC 8.4, hemoglobin 11.4, hematocrit 34.7, platelet 187. Sodium 139, potassium 3.2, BUN 10, creatinine 0.6, random sugar 162, AST 98, ALT 72, total protein and albumin normal. Echocardiogram showed a normal ejection fraction of 65%, moderate valvular aortic stenosis, trace mitral regurgitation, zdpow-vb-ybzz tricuspid regurgitation, right ventricular systolic pressure of 67, no pericardial effusion. DIAGNOSES: Aortic stenosis. The patient is on isolation due to flu. The patient will have stress test as an outpatient after about four weeks because of flu. We will avoid beta-blockers now. The patient has history of bradycardia in the past. The patient has been asymptomatic from bradycardia. We are marking arrangements to have stress test outpatient after about four weeks. The patient potassium is low, we will give potassium therapy. The patient is on potassium 20 mEq p.o. b.i.d. and plus the patient got one extra dose of potassium 20 mEq today, the patient daily, Tamiflu capsules 75 mg b.i.d., lisinopril 30 mg daily. We will repeat SMA-7, magnesium and potassium in the morning. We will follow with you. Rima Ennis MD
--- NOTE | 2017-06-18 20:58 | PN ---
DATE: 06/18/2017 SUBJECTIVE: The patient was seen at bedside. The patient is feeling better. He continuous with chest congestion and cough, but his appetite improved. He has normal bowel movement. The patient noticed to have intermittent bradycardia with a heart rate of 40 per minute on telemetry reading. The patient denies any chest pain, dizziness or shortness of breath. PHYSICAL EXAMINATION: VITAL SIGNS: Temperature 97.5, pulse 72, blood pressure 115/64, respiratory rate 20, his oxygen saturation is 95%. GENERAL: The patient is alert, awake and oriented. HEENT: Head is normocephalic and atraumatic. Eyes, pupils are reactive to light. Oral mucosa is moist. NECK: Supple. LUNGS: With scattered rhonchi in the right lower lung. HEART: Regular rhythm and rate. ABDOMEN: Soft, nontender, nondistended. EXTREMITIES: No edema. DIAGNOSTICS: This morning CBC stable WBC 8.4, and hemoglobin 11.4. His chemistry showed persistent (01:47) hypokalemia with potassium 3.2, glucose is fluctuating between 90 and 180. Blood and urine cultures are all negative. ASSESSMENT: 1. Influenza with acute bronchitis, clinically improved. 2. Intermittent sinus bradycardia, the patient asymptomatic. 3. Bifascicular heart block on EKG. 4. Type 2 diabetes mellitus. 5. Hypokalemia. PLAN OF TREATMENT: The patient will be monitored for one extra day due to persistent bradycardia. We will continue Tamiflu night and albuterol nebulizer for flu symptoms and bronchitis. We will continue his present therapy. Avoid beta-blockers, calcium-channel blockers for now. Cortney Fatima MD
[2017-06-18] MEDS: Insulin Detemir 100 units/ml Vial (Levemir) SC SCH (21:05)
[2017-06-19] MEDS: Albuterol 0.083% Inhal Sol (2.5 mg/3 mL) UD INH SCH ×3 (01:23→14:03)
[2017-06-19 06:56] VITALS: O2SAT 97
[2017-06-19] MEDS: Budesonide 0.5 mg/2 ml Inhal Susp UD IH SCH (08:10)
[2017-06-19 08:13] LABS: BLOOD UREA NITROGEN 10 mg/dL (7-21); CALCIUM 9.4 mg/dL (8.4-10.5); GFR AFRICAN-AMERICAN > 60; GFR NON-AFRICAN AMERICAN > 60; MAGNESIUM 1.9 mg/dL (1.7-2.2)
[2017-06-19] MEDS: Potassium Chloride 20 mEq ER Tab PO SCH (09:19)
[2017-06-19] MEDS: Promethazine DM 6.25 mg-15 mg/5 ml Syrup PO PRN (09:22)
[2017-06-19] MEDS: Fluticasone Nasal 50 mcg/Spray NS SCH (10:30)
[2017-06-19 12:40] VITALS: BP 122/71; PULSE 72; TEMP 97.6
--- NOTE | 2017-06-19 13:53 | PN ---
DATE: 06/19/2017 LOCATION: The patient is in room 277, bed 1. REASON FOR CONSULTATION: Evaluation for bradycardia, the patient admitted with flu. SUBJECTIVE: The patient denies any chest pain, shortness of breath, palpitation or dizziness. PHYSICAL EXAMINATION: VITAL SIGNS: Blood pressure 117/68, respirations 20, pulse 77, and temperature 98. HEENT: Head is normocephalic. Pupils are normal. Conjunctivae normal. Nose and throat normal. NECK: JVP low. Carotids are equal. THORAX: AP diameter normal. LUNGS: Clear. CARDIOVASCULAR: S1 and S2. ABDOMEN: Soft. No tenderness. No organomegaly. Bowel sounds are normal. EXTREMITIES: No clubbing. No cyanosis. LABORATORY DATA: Sodium 139, potassium 3.4, BUN 10, creatinine 0.6, and random sugar 129. WBC 8.4, hemoglobin 11.4, hematocrit 34.7, and platelets 187. DIAGNOSES: Aortic stenosis, bradycardia, and infection with flu. PLAN: The patient is clinically cardiac point stable. He can go home and can do stress test in 4 weeks. The patient already had echo, which showed EF of 65%, moderate valvular aortic stenosis, trace mitral regurgitation, [id number]-xf-aahb tricuspid regurgitation, right ventricular systolic pressure of 67 mmHg, which is suggested of plozxnlq-xe-eiyfrjlbijz pulmonary hypertension. No pericardial effusion. Extra potassium 20 mEq is already given today by Dr. Wadsworth. The patient is on Tamiflu capsule 75 mg b.i.d., lisinopril 30 mg p.o. daily, and glipizide 5 mg p.o. b.i.d. The patient has diabetes and hypertension. We will continue to follow. Rima Ennis MD
[2017-06-19] MEDS ORDERED: Potassium Chloride 10 mEq ER Tab PO ONE (15:18)
--- NOTE | 2017-06-20 10:59 | DS ---
PRIMARY DIAGNOSIS: Influenza. SECONDARY DIAGNOSES: 1. Acute bronchitis. 2. Sinus bradycardia with right bundle-branch block and left fascicular heart block. 3. Type 2 diabetes mellitus. 4. Hypokalemia. 5. Hyperlipidemia. HISTORY OF PRESENT ILLNESS: The patient is a 77-year-old male, admitted for fever, generalized weakness, and cough. The patient was found to have a positive Influenza test, and he was also noted to have a persistent bradycardia during evaluation in the emergency room. He was treated in telemetry. He is feeling much better with rest. His cough improved. The patient denies any chest pain, dizziness, or shortness of breath. The patient is ambulatory. PHYSICAL EXAMINATION: VITAL SIGNS: The patient's vitals were stable. Temperature 98, pulse 77, blood pressure 117/68, respiratory rate 20. His oxygen saturation 97% on room air. The patient is sitting in the chair, alert, awake, oriented. Did not distress. HEAD: Head is normocephalic, atraumatic. Eyes: Pupils are reactive to light. No jaundice. Oral mucosa is moist. Nasal congestion persistent. NECK: Supple. LUNGS: Decreased breath sounds in base and scattered minimal wheezing, improved with cough. No rales. HEART: Regular rhythm, rate of 70 per minute. ABDOMEN: Soft, nontender, nondistended. EXTREMITIES: With no edema. Full range of motion. DIAGNOSTIC TEST: This morning, CBC normal. Chemistry with improved potassium of 3.4, sodium 139, his BUN is 10 and creatinine is 0.6. His glucose during hospitalization was fluctuating between 90 and 170. Chest x-ray showed no infiltrations and no vascular congestion. CT of the abdomen on admission was negative for an abdominal pathology. The patient also had echocardiogram ordered by parliamentary archivist. Pertinent findings showed normal left ventricular size and function with ejection fraction of 65%. There is moderate aortic stenosis and trace of tricuspid and aortic regurgitation, no pericardial effusion. HOSPITAL STAY: The patient's hospitalization showed improving congestion. The patient was treated with nebulizer and budesonide for his bronchitis and cough, and he was also started on his chronic medications, Levemir 4 units for blood glucose control and glipizide. His beta jossue and his atenolol medication that normally he takes at home was put on hold due to bradycardia. DISCHARGE: The patient was discharged to home today in stable condition. He will continue heart-healthy diet. He will be finishing his Tamiflu treatment for tonight and tomorrow. The patient will be maintained on his chronic medication, Levemir 40 units at night. He was advised to stop taking Levemir in the morning. The patient also was advised to stop atenolol HCT at home. He will continue Benazepril 40 mg daily, simvastatin 40 mg daily, aspirin daily, glipizide 10 mg twice a day, metformin 500 mg twice a day. The patient was advised to follow up with family care doctor tomorrow. We will repeat his potassium. The patient will also need evaluation as outpatient with parliamentary archivist. He was scheduled already for stress test outpatient after he recovers fully from the flu symptoms. Cortney Fatima MD
== END 2017-06-19 14:22 | disposition home or self-care (01) | DRG 153 ==
LOC: ED 10:26 → ERH 13:30 → CCU 18:00 → OBSVTOIN 06-16 13:14 → 2RSO 06-17 20:39
PROVIDERS: ADMIT Family Medicine; ATTEND Family Medicine
DX: J11.1 Influenza due to unidentified influenza virus with other respiratory manifestations (principal); J20.9 Acute bronchitis, unspecified; I45.2 Bifascicular block; E86.0 Dehydration; E11.9 Type 2 diabetes mellitus without complications; I08.3 Combined rheumatic disorders of mitral, aortic and tricuspid valves; I45.10 Unspecified right bundle-branch block; I10 Essential (primary) hypertension; E87.6 Hypokalemia; E78.5 Hyperlipidemia, unspecified; M17.0 Bilateral primary osteoarthritis of knee; L57.0 Actinic keratosis; I49.3 Ventricular premature depolarization; R00.1 Bradycardia, unspecified; Z79.82 Long term (current) use of aspirin; Z79.4 Long term (current) use of insulin